=== PATIENT | female | born 1975 | race Caucasian/White ===

== ENCOUNTER 2024-02-01 22:48 | Emergency (ER) | payer OTHER, SELFPAY ==
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
[2024-02-01 23:30] VITALS: BP 135/87
[2024-02-02] MEDS: MOTRIN 600 MG PO (00:36)
== END 2024-02-02 00:40 | disposition home or self-care (01) ==
LOC: EMR 22:48
PROVIDERS: EMERGENCY PHYSICIAN Student in an Organized Health Care Education/Training Program
DX: S02.2XXA Fracture of nasal bones, initial encounter for closed fracture (principal); Y04.0XXA Assault by unarmed brawl or fight, initial encounter; E11.9 Type 2 diabetes mellitus without complications; F17.200 Nicotine dependence, unspecified, uncomplicated; Z90.49 Acquired absence of other specified parts of digestive tract
CPT/HCPCS: 99284; 70450; 70486; 73564